=== PATIENT | female | born 1945 | race Caucasian/White ===

== ENCOUNTER 2019-10-25 13:57 | Emergency (ER) | payer OTHER ==
[~2019-10-25] VITALS: Ht 157.5 cm; Wt 85.7 kg
[~2019-10-25 13:57] MED LIST: ALL DAY ALLERGY10 M3; ALTACE5 MG; ANTIVERT25 M1 PO; BACLOFEN10 MG; FOLGARD TABLET1 EACH; JANUVIA100 MG; LEVAQUIN750 MG PO; MEDROL4 MG PO; PROVENTIL3 ML/2.5 M IH; RESTORIL15 M1; SINGULAIR10 MG; SYNTHROID112 MCG
[2019-10-25] MEDS ORDERED: METFORMIN HCL500 MG (14:05)
[2019-10-25] MEDS ORDERED: TOPROL XL50 M1 (14:07)
== END 2019-10-25 18:02 | disposition home or self-care (01) ==
LOC: ER 13:57
DX: M54.2 Cervicalgia (principal); M62.830 Muscle spasm of back

== ENCOUNTER 2021-06-28 14:35 | Emergency (ER) | payer OTHER ==
[~2021-06-28] VITALS: Ht 157.5 cm; Wt 84.4 kg
[~2021-06-28 14:35] MED LIST changes: +METFORMIN HCL500 MG; +TOPROL XL50 M1
[2021-06-28] MEDS ORDERED: JANUMET 50-1,01 EACH (14:43)
[2021-06-28] MEDS ORDERED: ATACAND HCT 321 EAC1 (14:43)
== END 2021-06-28 19:26 | disposition home or self-care (01) ==
LOC: ER 14:35 → CPU-OBS 15:07 → ER 19:26
DX: R07.89 Other chest pain (principal); M25.552 Pain in left hip; M25.551 Pain in right hip; M54.5 Low back pain

== ENCOUNTER 2022-01-10 13:35 | Inpatient (IN) | payer OTHER ==
[~2022-01-10] VITALS: Ht 157.5 cm; Wt 77.1 kg
[~2022-01-10 13:35] MED LIST changes: +ATACAND HCT 321 EAC1; +JANUMET 50-1,01 EACH
--- NOTE | 2022-01-10 13:40 | NUR ---
PACIENTE FEMENINA ALERTA Y ORIENTADA X3, LLEGA AMBULANCIA ACOMPANADA DE HIJA, REFIERE HABERSE CAIDO EN ELLISON HOGAR Y HABERSE GOLPEADO LA RAUDEL Y TAMBIEN VERBALIZA ESTAR DURMIENDO DEMASIADO.
--- NOTE | 2022-01-10 15:24 | NUR ---
PTE FEMENINA ALERTA Y ORIENTADA EN [place]OWER ESFERAS ES EVALUADA POR . RN JORGENSEN EDUCA PTE SOBRE ORDENES DE [place] REFIERE COMPRENDER. EXTRAE MUESTRAS DE LABORATORIO Y CANALIZA VENA BAJO MEDIDAS ASEPTICAS. ADMINISTRA MEDICAMENTO, BAJO MEDIDAS ASEPTICAS. NOTIFICA A RADIOLOGIA PARA CT.
[2022-01-12] MEDS ORDERED: SULINDAC200 MG (08:43)
[2022-01-12] MEDS ORDERED: ROSUVASTATIN CA20 MG (08:44)
[2022-01-12] MEDS ORDERED: GLIMEPIRIDE4 M1 (08:44)
== END 2022-01-28 15:45 | disposition home or self-care (01) | DRG 682 ==
LOC: ER 13:35 → MEDI 21:12
PROVIDERS: ADMIT Internal Medicine; ATTEND Internal Medicine
PROC: BW28ZZZ Computerized Tomography (CT Scan) of Head (ICD-10-PCS; 2022-01-10)
PROC: BW21ZZZ Computerized Tomography (CT Scan) of Abdomen and Pelvis (ICD-10-PCS; 2022-01-15)
PROC: 30233N1 Transfusion of Nonautologous Red Blood Cells into Peripheral Vein, Percutaneous Approach (ICD-10-PCS; principal; 2022-01-17)
PROC: 02HV33Z Insertion of Infusion Device into Superior Vena Cava, Percutaneous Approach (ICD-10-PCS; 2022-01-17)
PROC: B348ZZZ Ultrasonography of Bilateral Internal Carotid Arteries (ICD-10-PCS; 2022-01-23)
DX: N17.8 Other acute kidney failure (principal); K85.90 Acute pancreatitis without necrosis or infection, unspecified; N39.0 Urinary tract infection, site not specified; K80.18 Calculus of gallbladder with other cholecystitis without obstruction; K57.90 Diverticulosis of intestine, part unspecified, without perforation or abscess without bleeding; B96.29 Other Escherichia coli [E. coli] as the cause of diseases classified elsewhere; S00.93XA Contusion of unspecified part of head, initial encounter; D64.9 Anemia, unspecified; D72.828 Other elevated white blood cell count; E11.69 Type 2 diabetes mellitus with other specified complication; Z79.4 Long term (current) use of insulin; I10 Essential (primary) hypertension; E03.8 Other specified hypothyroidism; E78.49 Other hyperlipidemia; Z74.01 Bed confinement status; Z20.822 Contact with and (suspected) exposure to COVID-19
CPT/HCPCS: 70551

== ENCOUNTER 2023-05-27 23:30 | Inpatient (IN) | payer OTHER ==
[~2023-05-27] VITALS: Ht 157.5 cm; Wt 84.4 kg
[~2023-05-27 23:30] MED LIST changes: +GLIMEPIRIDE4 M1; +ROSUVASTATIN CA20 MG; +SULINDAC200 MG
[2023-05-27] MEDS ORDERED: JANUMET 50-5001 EACH PO (23:43)
--- NOTE | 2023-05-28 00:05 | NUR ---
PTE ALERTA Y ORIENTADA X3. PTE REFIERE QUE DESDE MARICARMEN TIENE MALESTAR ESTOMACAL. SE REALIZAN V/S Y EKG Y SE PRESENTA A DR. GAINES.
--- NOTE | 2023-05-28 02:29 | NUR ---
PTE ALERTA Y ORIENTADA X3 EN COMPANIA DE ELLISON HIJA. SE REALIZAN MUESTRAS DE LAB TANYA ORDEN MEDICA Y BAJO MEDIDAS ASEPTICAS. SE ADMINISTRA MEDICAMENTO TANYA ORDEN MEDICA BAJO MEDIDAS ASEPTICAS, NO SE OBSERVA REACCION ADVERSA AL MOMENTO. SE CANALIZA USANDO MEDIDAS ASEPTICAS, AREA PATENTE.
--- NOTE | 2023-05-28 06:56 | NUR ---
SE RECIBE PTE FEMEINA DE 78 ANOS ALERTA Y OIRNETADA X3 QUIEN AL MOMENTO NO REFIER DOLOR PTE AL MOMENTO SE OBSERBA EN DESCANSO ABSOLUTO. PTE AL MOMENTO PEND A LECTURA DE CT. PTE BAJO OBSERBACION POR CAMBIO EN ELLISON CONDICION.
--- NOTE | 2023-05-28 07:35 | NUR ---
SE MADALYN DXT A PTE Y EL MISMO OBTIENE 347 MG/DL SE NOTIFICA LO MISMO A DR STAPLETON QUIEN ORDENA LA ADMINISTRACION DE 8 UNIDADES DE HUMALOG SUBQUTANEOUS. PTE BAJO OBSERBACION POR CAMBIO EN ELLISON CONDICION.
--- NOTE | 2023-05-28 14:58 | NUR ---
SE RECIEBE PACIENTE DEL TURNO ANTERIOR LA MISMA SE ENCUENETRA ALERTA Y ORIENTADA X3, SE LE ORIENTA A PACIENTE SOBRE CONTINUIDAD DE TRATAMIENTO Y VERBALIZA ENTENDER. SE OBSERVA PACIENTE EN SAJI CON BARANDAS ELEVADAS POR PREACAUCION A CAIDAS. SE OBSERVA PACIENTE CANALIZADA, RECIBIENDO R/L BAJANDO A 80ML/HR. SE MANTIENE PACIENTE BAJO OBSERVACION PENDIENTE CONSULTA CON DR JUDY JARRETT
[2023-05-31] MEDS ORDERED: SYNTHROID50 MCG (08:12)
[2023-05-31] MEDS ORDERED: AMLODIPINE BESY10 MG (08:12)
[2023-05-31] MEDS ORDERED: CANDESARTAN-HC1 EAC2 (08:12)
[2023-05-31] MEDS ORDERED: ROSUVASTATIN CA10 MG (08:13)
== END 2023-06-02 14:03 | disposition home or self-care (01) | DRG 439 ==
LOC: ER 23:30 → MEDJ 05-28 16:13
PROVIDERS: ADMIT Internal Medicine; ATTEND Internal Medicine
PROC: BF37ZZZ Magnetic Resonance Imaging (MRI) of Pancreas (ICD-10-PCS; principal; 2023-05-28)
PROC: B24BZZZ Ultrasonography of Heart with Aorta (ICD-10-PCS; 2023-05-31)
DX: K85.90 Acute pancreatitis without necrosis or infection, unspecified (principal); E87.1 Hypo-osmolality and hyponatremia; N17.9 Acute kidney failure, unspecified; E86.0 Dehydration; K80.20 Calculus of gallbladder without cholecystitis without obstruction; Z79.4 Long term (current) use of insulin; E03.9 Hypothyroidism, unspecified; E11.65 Type 2 diabetes mellitus with hyperglycemia; I12.9 Hypertensive chronic kidney disease with stage 1 through stage 4 chronic kidney disease, or unspecified chronic kidney disease; E11.22 Type 2 diabetes mellitus with diabetic chronic kidney disease; N18.9 Chronic kidney disease, unspecified; Z20.822 Contact with and (suspected) exposure to COVID-19; E66.8 Other obesity

== ENCOUNTER 2024-02-25 18:50 | Inpatient (IN) | payer OTHER ==
[~2024-02-25] VITALS: Ht 157.5 cm; Wt 84.4 kg
[~2024-02-25 18:50] MED LIST changes: +AMLODIPINE BESY10 MG; +CANDESARTAN-HC1 EAC2; +JANUMET 50-5001 EACH PO; +ROSUVASTATIN CA10 MG; +SYNTHROID50 MCG
--- NOTE | 2024-02-25 19:08 | NUR ---
SE RECIBE PACIENTE ALERTA Y ORIENTADA EN COMPANIA DE ELLISON HIJA. ESTA REFIERE DOLOR ABDONIAL EN CUDRANTE EPIGASTRICO QUE IRRADIA HACIA EL COSTADO DERECHO ACOMPANADO DE NAUSEAS. REFIERE TAMBIEN QUE MARICARMEN TUVO JANIA DIARREA DE COLOR KJ CORINNE. SE MIDEN S/V Y SE UBICA.
[2024-02-25] MEDS ORDERED: MORPHINE SULFATE 4 MG/ML CARTRIDGE IV ONE (19:45)
[2024-02-25] MEDS ORDERED: FAMOTIDINE/PF 20 MG/2 ML VIAL IV ONE (19:45)
[2024-02-25] MEDS ORDERED: ONDANSETRON HCL 2 MG/ML VIAL IV ONE (19:45)
[2024-02-25] MEDS ORDERED: 0.9 % SODIUM CHLORIDE 500 ML IV SCH (19:45)
--- NOTE | 2024-02-25 20:16 | NUR ---
PTE ALERTA Y ORIENTADA X3, RN SHARI ORIENTA SOBRE TX MEDICO LA CUAL REFIERE ACEPTAR. SE [id number] MUESTRAS DE LAB Y SE CANALIZA PTE UTILIZANDO MEDIDAS ASEPTICAS. SE ADMINISTRAN MEDS TANYA ORDEN MEDICA, NO PRESENTA REACCION ADVERSA.
[2024-02-25 20:21] LABS: HEMATOCRIT 42.8 % (36.0-45.00); HEMOGLOBIN 14.3 g/dL (12.0-15.00); MEAN CELL VOLUME 86.9 fL (80.00-100.00); MEAN CORPUSCULAR HEMOGLOBIN 28.9 pg (27.00-32.0); MEAN CORPUSCULAR HGB CONC 33.3 g/dl (32.0-36.0); PLATELET COUNT 243 K/uL (150-450); RED BLOOD COUNT 4.93 M/uL (4.00-6.00); RED CELL DISTRIBUTION WIDTH 14.2 % (11.5-14.5)
[2024-02-25 20:41] LABS: INR 1.02; PARTIAL THROMBOPLASTIN TIME 22.2 SECONDS (22.0-34.0); PROTHROMBIN TIME 10.7 SECONDS (9.0-11.5)
[2024-02-25 20:46] LABS: BILIRUBIN TOTAL 0.71 mg/dL (0.3-1.2); CALCIUM 10.6 mg/dL (8.5-10.1); CREATININE SERUM 1.21 mg/dL (0.55-1.02); GFR 43.15; POTASSIUM 5.03 mEq/L (3.5-5.1)
[2024-02-25 20:57] LABS: BILIRUBIN,CONJUGATED 0.13 mg/dL (0.0-0.2); BILIRUBIN,UNCONJUGATED 0.58 mg/dL (0.0-0.6)
[2024-02-25] MEDS ORDERED: RINGERS SOLUTION,LACTATED 1,000 ML IV SCH (22:15)
[2024-02-25] MEDS ORDERED: ONDANSETRON HCL 4 MG in 0.9 % SODIUM CHLORIDE 50 ML IV PRN (22:30)
[2024-02-25] MEDS ORDERED: DEXTROSE 50 % IN WATER 0.5 G/ML DISP.SYRIN IV PRN (22:30)
[2024-02-25] MEDS ORDERED: MEPERIDINE HCL/PF 25 MG/ML VIAL IM PRN (22:30)
[2024-02-25] MEDS ORDERED: INSULIN LISPRO 1,000 UNIT/10 ML UNITS SUBCUTANEO PRN (22:30)
[2024-02-26] MEDS ORDERED: PIPERACILLIN/TAZOBACTAM SODIUM 3.375 GM in DEXTROSE 5 % IN WATER 100 ML IV SCH
[2024-02-26 00:11] LABS: URINE APPEARANCE Cloudy; URINE BILIRRUBIN Negative (NEGATIVE); URINE BLOOD Negative; URINE COLOR Yellow; URINE LEUKOCYTE Negative; URINE NITRATE Positive; URINE PROTEIN Trace (NEGATIVE); URINE UROBILINOGEN 0.2 E.U./dl
[2024-02-26 00:15] LABS: URINE EPITHELIAL CELLS 15.2 uL (0.0-38.8); URINE RBC 3.4 uL (0.0-20.8); URINE WBC 12.8 uL (0.0-23.2)
[2024-02-26 00:22] LABS: URINE BACTERIA > 9821.5 uL (0.0-1933); URINE GLUCOSE >=1000 MG/DL (NEGATIVE)
[2024-02-26] MEDS ORDERED: LEVOTHYROXINE SODIUM 112 MCG TABLET PO SCH (06:00)
[2024-02-26 06:46] LABS: ABG PO2 75.8 mmHg (80-100); ABG pCO2 48.9 mmHg (35-45); BASE EXCESS 0.8 mmol/l; SaO2 94.4 %; Tco2 28.5 mmol/l; allen test SATISFACTORY; o2 21 %; puncture site RADIAL LEFT
[2024-02-26] MEDS ORDERED: FAMOTIDINE/PF 20 MG in 0.9 % SODIUM CHLORIDE 8 ML IV PUSH SCH (09:00)
[2024-02-26] MEDS ORDERED: ENOXAPARIN SODIUM 40 MG/0.4 ML SYRINGE SUBCUTANEO SCH (09:00)
[2024-02-26] MEDS ORDERED: AMLODIPINE BESYLATE 10 MG TABLET PO SCH (09:00)
[2024-02-26] MEDS ORDERED: METOPROLOL SUCCINATE 100 MG TAB.SR.24H PO SCH (09:00)
[2024-02-26] MEDS ORDERED: CANDESARTAN CILEXETIL 32 MG TABLET PO SCH (09:00)
[2024-02-26 09:34] LABS: ALBUMIN 3.7 gm/dL (3.4-5.0); BILIRUBIN TOTAL 1.23 mg/dL (0.3-1.2); BILIRUBIN,CONJUGATED 0.28 mg/dL (0.0-0.2); BILIRUBIN,UNCONJUGATED 0.95 mg/dL (0.0-0.6); TOTAL PROTEIN 8.1 gm/dL (6.4-8.2)
[2024-02-26 09:36] LABS: CHOL HDL RATIO 7.9 (0-5.0)
[2024-02-26] MEDS ORDERED: AA 4.25%/CAL/LYTES/DEXT 5% 1,000 ML PERIFERAL SCH (17:00)
[2024-02-26 17:48] LABS: CALCIUM 10.2 mg/dL (8.5-10.1); CHOL HDL RATIO 6.7 (0-5.0); CREATININE SERUM 1.02 mg/dL (0.55-1.02); GFR 52.55; POTASSIUM 4.8 mEq/L (3.5-5.1)
[2024-02-28 06:40] LABS: INR 1.08; PARTIAL THROMBOPLASTIN TIME 27.3 SECONDS (22.0-34.0)
[2024-02-28 06:46] LABS: PROTHROMBIN TIME 11.3 SECONDS (9.0-11.5)
[2024-02-28 07:18] LABS: HEMOGLOBIN 12.4 g/dL (12.0-15.00); MEAN CELL VOLUME 87.2 fL (80.00-100.00); MEAN CORPUSCULAR HEMOGLOBIN 29.2 pg (27.00-32.0); MEAN CORPUSCULAR HGB CONC 33.5 g/dl (32.0-36.0); PLATELET COUNT 175 K/uL (150-450); RED BLOOD COUNT 4.24 M/uL (4.00-6.00); RED CELL DISTRIBUTION WIDTH 14.1 % (11.5-14.5)
[2024-02-28 07:57] LABS: ALBUMIN 2.9 gm/dL (3.4-5.0); BILIRUBIN TOTAL 1.01 mg/dL (0.3-1.2); BILIRUBIN,CONJUGATED 0.29 mg/dL (0.0-0.2); BILIRUBIN,UNCONJUGATED 0.72 mg/dL (0.0-0.6); CALCIUM 10.6 mg/dL (8.5-10.1); CREATININE SERUM 0.9 mg/dL (0.55-1.02); GFR 60.71; GLOBULINA 3.6 G/DL (2.4-3.5); MAGNESIUM 1.5 mg/dL (1.8-2.4); POTASSIUM 4.1 mEq/L (3.5-5.1); TOTAL PROTEIN 6.5 gm/dL (6.4-8.2)
[2024-02-28 10:32] LABS: UREA CLEARANCE 5.5 ML/MIN
[2024-02-28] MEDS ORDERED: FAMOTIDINE/PF 20 MG in 0.9 % SODIUM CHLORIDE 8 ML IV PUSH SCH (17:00)
[2024-02-29 06:25] LABS: ALBUMIN 2.7 gm/dL (3.4-5.0); BILIRUBIN TOTAL 1.04 mg/dL (0.3-1.2); CALCIUM 10.1 mg/dL (8.5-10.1); CREATININE SERUM 0.79 mg/dL (0.55-1.02); GFR 70.57; GLOBULINA 3.6 G/DL (2.4-3.5); POTASSIUM 4.11 mEq/L (3.5-5.1); TOTAL PROTEIN 6.3 gm/dL (6.4-8.2)
[2024-02-29 20:52] LABS: AMYLASE 74 U/L (25-115)
[2024-02-29 20:54] LABS: LIPASE 142 U/L (13-75)
[2024-03-01] MEDS ORDERED: PANTOPRAZOLE SODIUM 40 MG TABLET.DR PO STA (13:44)
[2024-03-01] MEDS ORDERED: PANTOPRAZOLE SODIUM 40 MG TABLET.DR PO SCH (21:00)
== END 2024-03-03 11:43 | disposition home or self-care (01) | DRG 439 ==
LOC: ER 18:50 → MEDJ 22:38
PROVIDERS: General Practice; Internal Medicine Nephrology; ADMIT Internal Medicine; ATTEND Internal Medicine
PROC: BW21YZZ Computerized Tomography (CT Scan) of Abdomen and Pelvis using Other Contrast (ICD-10-PCS; principal; 2024-02-25)
PROC: 02HV33Z Insertion of Infusion Device into Superior Vena Cava, Percutaneous Approach (ICD-10-PCS; 2024-02-27)
PROC: 3E0436Z Introduction of Nutritional Substance into Central Vein, Percutaneous Approach (ICD-10-PCS; 2024-02-27)
DX: K85.90 Acute pancreatitis without necrosis or infection, unspecified (principal); N17.9 Acute kidney failure, unspecified; E83.52 Hypercalcemia; I12.9 Hypertensive chronic kidney disease with stage 1 through stage 4 chronic kidney disease, or unspecified chronic kidney disease; E11.9 Type 2 diabetes mellitus without complications; N18.9 Chronic kidney disease, unspecified; E03.9 Hypothyroidism, unspecified; Z79.84 Long term (current) use of oral hypoglycemic drugs